=== PATIENT | female | born 1995 | race Caucasian/White ===

== ENCOUNTER 2018-05-28 21:17 | Emergency (ER) | payer MEDICAID ==
[~2018-05-28] VITALS: Ht 160 cm; Wt 49.0 kg
[~2018-05-28 21:17] MED LIST: ALBU8.5H8 IH
--- NOTE | 2018-05-28 21:26 | NUR ---
VALENTE GERMAN AT [facility] FOR EVAL.
[2018-05-28] MEDS ORDERED: ALBUTEROL FS 2.5 MG/3 ML VIAL.NEB NEB ONE ×2 (21:30→22:30)
[2018-05-28] MEDS ORDERED: IPRATROPIUM NEB FS 0.5 MG/2.5 ML AMPUL.NEB NEB ONE ×2 (21:30→22:30)
[2018-05-28] MEDS ORDERED: ALBUTEROL FS 2.5 MG/3 ML VIAL.NEB ONE ×2 (21:36→22:50)
[2018-05-28] MEDS ORDERED: IPRATROPIUM NEB FS 0.5 MG/2.5 ML AMPUL.NEB ONE ×2 (21:36→22:50)
[2018-05-28] MEDS ORDERED: methylPREDNISolone SOD SUCC 125 MG/2ML VIAL ONE (21:43)
[2018-05-28] MEDS ORDERED: methylPREDNISolone SOD SUCC 40 MG/ML VIAL ONE (21:44)
[2018-05-28] MEDS ORDERED: methylPREDNISolone SOD SUCC 40 MG/ML VIAL IV ONE (22:00)
--- NOTE | 2018-05-28 22:47 | NUR ---
RT BACK AT BEDSIDE FOR 2ND BREATHING TREATMENT.
[2018-05-28 23:09] VITALS: BP 115/65
[2018-05-28] MEDS ORDERED: Magnesium 1GM/D5W 100ML PREMIX 200 ML IV ONE (23:45)
[2018-05-29] MEDS ORDERED: HYDROCODONE BIT/ACETAMINOPHEN 3.33 MG/5 ML UDC PO ONE
[2018-05-29] MEDS ORDERED: Magnesium 1 GM/2 ML VIAL IV ONE
[2018-05-29] MEDS ORDERED: ALBUTEROL FS 2.5 MG/3 ML VIAL.NEB CONTNEB ONE
[2018-05-29] MEDS ORDERED: ACETAMINOPHEN W/CODEINE ELIXIR 5 ML UDC PO ONE
[2018-05-29] MEDS ORDERED: HYDROCODONE BIT/HOMATROPINE 5 ML UDC ONE (00:36)
[2018-05-29] MEDS ORDERED: HYDROCODONE BIT/HOMATROPINE 5 ML UDC PO ONE (01:30)
--- NOTE | 2018-05-29 01:47 | NUR ---
PT OK TO DISCHARGE PER VALENTE GERMAN. IV removed. Catheter intact and site benign. Pressure and 4x4 applied to site. No bleeding noted.Patient discharged to home in stable condition. Written and verbal after care instructions given. Patient verbalizes understanding of instruction.Patient is awake and alert to self, day, and place. PT ambulatory with a steady gait.
== END 2018-05-29 01:49 | disposition home or self-care (01) ==
LOC: ER 21:18
DX: J45.901 Unspecified asthma with (acute) exacerbation (principal); F10.10 Alcohol abuse, uncomplicated; F17.200 Nicotine dependence, unspecified, uncomplicated; Y90.9 Presence of alcohol in blood, level not specified
CPT/HCPCS: 94640 ×2; 94644; 96374; 96375; 99285; A4606; J2920; J3475; Z7610; J2930